=== PATIENT | female | born 1960 ===

== ENCOUNTER 2017-08-14 11:14 | Emergency (ER) | payer OTHER ==
[2017-08-14 11:25] VITALS: TEMP 97
[2017-08-14 11:26] VITALS: BMI 31.8
[2017-08-14 11:31] VITALS: RESP 18
[2017-08-14] MEDS ORDERED: Oxycodone/Acetaminophen 5/325 mg Tab PO STA (12:14)
[2017-08-14] MEDS ORDERED: Oxycodone/Acetaminophen 5/325 mg Tab ONE (12:18)
[2017-08-14 14:10] VITALS: BP 135/68; PULSE 88; O2SAT 96
--- NOTE | 2017-08-14 14:12 | ED PDOC ---
HPI: Back Time Seen by Provider: 08/14/17 11:18 Chief Complaint (Nursing): Lower Extremity Problem/Injury Chief Complaint (Provider): Low back pain radiaiting down the leg History Per: Patient History/Exam Limitations: no limitations Onset/Duration Of Symptoms: Days Additional Complaint(s): 57 yo female with sciatica presents with worsening pain. PT states it has been going on for a few months, she had MRI completed, PT and was seen by chiropractor. Pt states the pain is getting worse and going down the right leg. Pt states she has been taking NSAIDs at home without relief. no new fall/ trauma. Past Medical History Reviewed: Historical Data, Nursing Documentation, Vital Signs Vital Signs: Last Vital Signs Temp 97 F L 08/14/17 11:24 Pulse 88 08/14/17 14:09 Resp 18 08/14/17 14:09 BP 135/68 08/14/17 14:09 Pulse Ox 96 08/14/17 14:09 - Medical History PMH: Arthritis, Gastritis, Hypothyroidism, Migraine, Rheumatoid Arthritis Denies: Asthma - Family History Family History: States: Unknown Family Hx - Living Arrangements Living Arrangements: With Family - Social History Current smoker - smoking cessation education provided: No - Home Medications Home Medications: Ambulatory Orders Medication Instructions Recorded Clindamycin [Cleocin] 300 mg PO TID #30 cap 05/06/15 Fluconazole [Diflucan] 150 mg PO ONCE #1 tab 05/09/15 Albuterol HFA [Ventolin HFA 90 1 - 2 puff IH Q4 PRN #1 inhaler 04/20/16 mcg/actuation (8 g)] Azithromycin [Zithromax] 250 mg PO DAILY #6 tab 04/20/16 Prednisone 50 mg PO DAILY #4 tab 04/20/16 Promethazine DM [Phenergan DM 10 ml PO Q4 PRN #100 dose 04/20/16 Syrup] oxyCODONE/Acetaminophen [Percocet 1 ea PO Q6H PRN #15 tab 08/14/17 5/325 mg Tab] - Allergies Allergies/Adverse Reactions: Allergies Allergy/AdvReac Type Severity Reaction Status Date / Time butalbital [From Fioricet] Allergy SHORTNESS Verified 05/09/15 18:45 OF BREATH caffeine [From Fioricet] Allergy SHORTNESS Verified 02/11/16 18:45 OF BREATH Review of Systems ROS Statement: Except As Marked, All Systems Reviewed And Found Negative Constitutional: Negative for: Fever, Chills Musculoskeletal: Positive for: Back Pain, Leg Pain Physical Exam - Reviewed Nursing Documentation Reviewed: Yes Vital Signs Reviewed: Yes - Physical Exam Appears: Positive for: Well, Non-toxic, No Acute Distress Head Exam: Positive for: ATRAUMATIC, NORMAL INSPECTION, NORMOCEPHALIC Skin: Positive for: Normal Color, Warm, DRY Eye Exam: Positive for: Normal appearance ENT: Positive for: Normal ENT Inspection Neck: Positive for: Normal, Painless ROM Cardiovascular/Chest: Positive for: Regular Rate, Rhythm Respiratory: Positive for: CNT, Normal Breath Sounds Gastrointestinal/Abdominal: Positive for: Normal Exam, Soft Back: Positive for: Normal Inspection Extremity: Positive for: Normal ROM Neurologic/Psych: Positive for: Alert, Oriented - ECG O2 Sat by Pulse Oximetry: 96 Medical Decision Making Medical Decision Making: Pt had allergic reaction to fiorecet in the past but has taken acetaminophen without issues. Pt reports feeling better on re-evaluation. Disposition - Clinical Impression Clinical Impression: Sciatica - Patient ED Disposition Is Patient to be Admitted: No Counseled Patient/Family Regarding: Diagnosis, Need For Followup, Rx Given - Disposition Disposition: Routine/Home Disposition Time: 14:12 Condition: GOOD Prescriptions: oxyCODONE/Acetaminophen [Percocet 5/325 mg Tab] 1 ea PO Q6H PRN #15 tab PRN Reason: Pain, Severe (8-10) Instructions: Sciatica
== END 2017-08-14 14:36 | disposition home or self-care (01) ==
LOC: H.ER 11:14
DX: M54.31 Sciatica, right side (principal); E03.9 Hypothyroidism, unspecified; M06.9 Rheumatoid arthritis, unspecified
CPT/HCPCS: 96372; 99284; J1885